=== PATIENT | male | born 1940 | race Caucasian/White ===

== ENCOUNTER 2023-12-23 11:20 | Inpatient (IN) | payer OTHER, MEDICARE ==
[2023-12-23] VITALS (27 sets, daily range): BP systolic 68–165; BP diastolic 50–112
[~2023-12-23] VITALS: Ht 172.7 cm; Wt 58.1 kg
[~2023-12-23 11:20] MED LIST: ASPI81EC PO; ATEN50 PO; CETI5 PO; CLOP75 PO; LEVSOD150 PO; LISI10 PO; LISI5 PO; OMEG1CAP30 PO; PRAV40 PO; Pravachol80 MG PO; TRAM50 PO
[2023-12-23 12:00] LABS: BASOPHILS PERCENT AUTO 1 % (0-2); Hematocrit 42.3 % (37.0-53.0); Hemoglobin 13.7 g/dL (13.5-17.5); IMMATURE GRAN ABSOLUTE AUTO 0.08 K/mm3 (0.00-0.10); IMMATURE GRAN PERCENT AUTO 1 % (0-1); Mean Corpuscular HGB Conc 32.4 g/dL (31.5-36.5); Mean Corpuscular Volume 90 fL (80-100); Mean Platelet Volume 9.5 fL (9.1-12.4); Platelet Count 455 K/mm3 (150-400); RDW Coefficient Variation 16.4 % (11.7-14.2); Red Blood Cell Count 4.72 M/mm3 (4.30-5.90); White Blood Cell Count 14.44 K/mm3 (4.00-11.30)
[2023-12-23 12:09] LABS: BASOPHILS ABSOLUTE AUTO 0.11 K/mm3 (0.00-0.23); EOSINOPHILS ABSOLUTE AUTO 2.61 K/mm3 (0.00-0.68); EOSINOPHILS PERCENT AUTO 18 % (0-6); LYMPHOCYTES ABSOLUTE AUTO 2.16 K/mm3 (0.84-5.20); LYMPHOCYTES PERCENT AUTO 15 % (21-46); MONOCYTES ABSOLUTE AUTO 1.24 K/mm3 (0.16-1.47); MONOCYTES PERCENT AUTO 9 % (4-13); NEUTROPHILS PERCENT AUTO 57 % (41-73)
[2023-12-23] MEDS ORDERED: Nitroglycerin 0.4 MG SUBL SL PRN (13:45)
[2023-12-23] MEDS ORDERED: Ondansetron HCl 2 MG / ML 2ML Vial IV ONE (13:50)
[2023-12-23] MEDS ORDERED: FentaNYL Citrate 50 MCG/ML 2 ML Injection IV ONE (13:50)
[2023-12-23 13:53] LABS: Albumin, Blood 3.1 g/dL (3.4-5.0); Albumin/Globulin Ratio 0.9 (0.8-1.8); Bilirubin, Total 0.5 mg/dL (0.1-1.0); Bun/Creatinine Ratio 32.7 (12.0-20.0); Calcium, Blood 8.6 mg/dL (8.5-10.1); Creatinine, Blood 0.86 mg/dL (0.60-1.20); Globulin, Blood 3.4 g/dL (2.2-4.0); Potassium, Blood 5.1 mmol/L (3.5-5.5); Total Protein, Blood 6.5 g/dL (6.4-8.2)
[2023-12-23] MEDS ORDERED: HYDROmorphone HCl/Pf 1MG SYR IV ONE (14:10)
[2023-12-23] MEDS ORDERED: FentaNYL Citrate 50 MCG/ML 2 ML Injection IV SCH (14:45)
[2023-12-23] MEDS ORDERED: propofoL 100 ML IV SCH (14:45)
[2023-12-23] MEDS ORDERED: Verapamil HCL 2.5 MG/ML 2ML Injection ONE (14:46)
[2023-12-23] MEDS ORDERED: Nitroglycerin 2 MG/20 ML BTL ONE (14:47)
[2023-12-23] MEDS ORDERED: NS 1,000 ML IV ONE ×2 (14:47→14:52)
[2023-12-23] MEDS ORDERED: NS 250 ML IV ONE (14:47)
[2023-12-23] MEDS ORDERED: Heparin Sodium 1000 Units/ML 10ML MDV ONE (14:47)
[2023-12-23] MEDS ORDERED: FentaNYL Citrate 50 MCG/ML 2 ML Injection ONE (14:52)
[2023-12-23] MEDS ORDERED: Midazolam HCl 1MG / ML 2ML Vial ONE (14:52)
[2023-12-23] MEDS ORDERED: Phenylephrine HCl 100 MCG/ML-NS 10MLSYR (1MG/10ML) ONE (14:53)
[2023-12-23] MEDS ORDERED: Atropine Sulfate 0.1 MG/ML 10ML SYR ONE (14:53)
[2023-12-23] MEDS ORDERED: Ticagrelor 90 MG TABLET PO ONE (14:55)
[2023-12-23] MEDS ORDERED: Aspirin 81 MG Chew PO ONE (14:55)
[2023-12-23] MEDS ORDERED: Midazolam HCL 50 MG in NS 40 ML IV PRN (15:00)
[2023-12-23] MEDS ORDERED: Aspirin 300 MG Supp PR ONE (15:05)
[2023-12-23] MEDS ORDERED: Tirofiban HCL Monohydrate 3.75 MG/15 ML Vial ONE (15:43)
[2023-12-23] MEDS ORDERED: Tirofiban HCL M-Hyd/NS 250 ML IV ONE (15:43)
[2023-12-23] MEDS ORDERED: Amiodarone HCl 50 MG / ML 3 ML Amp IV ONE (16:55)
[2023-12-23] MEDS ORDERED: EPINEPhrine HCl 0.1 MG/ML 10ML SYR XX ONE (16:55)
[2023-12-23] MEDS ORDERED: Rocuronium Bromide 10 MG/ML 5ML Injection IV ONE (16:57)
[2023-12-23] MEDS ORDERED: Etomidate 2MG / ML 10ML Vial XX ONE (16:57)
--- NOTE | 2023-12-23 17:18 | NUR ---
ASSUMED CARE PT ARRIVED TO ROOM AT 1703, HE IS INTUBATED AND SEDATED. HE IS UNRESPONSIVE TO PAINFUL STIMULI. HE DOES NOT HAVE A COUGH OR GAG REFLEX. PT HAS TR BAND IN PLACE W/ 17CC OF AIR, IT WAS PLACED AT 1651 BY CHILD NUTRITION MANAGER. ZOLL PADS IN PLACE, W/ CONTINOUS CARDIAC MONITORING. PT VENT SETTINGS ARE 16/500/5/45% FIO2. 7.5 TUBE WITH 25CM AT THE TEETH. PT HAS TEMP MENDOZA CATH PLACED DRAINING CLEAR YELLOW URINE TO GRAVITY. PT INITIAL TEMPERATURE WAS 94.0 ON ARRIVAL. PT HAS AMIODARONE DRIP AT 1MG/MIN, AGRASTAT 0.1MCG/KG/MIN.
[2023-12-23] MEDS ORDERED: [UNRECOGNIZED DRUG - OTHER] IV SCH (17:30)
[2023-12-23] MEDS ORDERED: TIROFIBAN IV SCH (17:30)
[2023-12-23] MEDS ORDERED: SODIUM CHLORIDE IV SCH (17:30)
[2023-12-23] MEDS ORDERED: Cetylpyridinium Chloride 1 EA MISC MT SCH (18:00)
[2023-12-23] MEDS ORDERED: FLU VACC TS2024-25(6MOS UP)/PF 45 MCG/0.5 ML SYRINGE IM ONE (18:00)
[2023-12-23] MEDS ORDERED: Ondansetron HCl 2 MG / ML 2ML Vial IV PRN (18:00)
[2023-12-23] MEDS ORDERED: NS 1,000 ML IV SCH (18:00)
[2023-12-23] MEDS ORDERED: FentaNYL Citrate 50 MCG/ML 2 ML Injection IV PRN ×2 (18:05→21:05)
[2023-12-23 18:07] LABS: PCO2 Arterial 42.6 mmHg (35-45); PO2 Arterial 92.4 mmHg (80-100); pH Blood Arterial 7.32 (7.35-7.45)
--- NOTE | 2023-12-23 18:36 | NUR ---
"Spiritual Care | Nurse referral Pt. is intubated and mostly not responsive. This nursing teacher is called by the charge nurse to support the family during this critical point in the Pts. care. Pts. Spouse and son are present. Facilitate a life review. Spouse displays evidence of a lower level of awareness. Prayed with Pt. and gave family support. The family verbalized gratitude for the spiritual care visit when this chaplainwas called to a Trauma in the ED."
[2023-12-23] MEDS ORDERED: Lactated Ringer's 1,000 ML IV ONE (18:44)
[2023-12-23] MEDS ORDERED: Heparin Sodium,Porcine 5,000 UNIT/0.5 ML SDV SC ONE (18:46)
--- NOTE | 2023-12-23 19:28 | NUR ---
DAY SHIFT SUMMARY PT ARRIVED FROM THE CUSTOMER SUPPORT CONSULTANT W NO NEURO RESPONSES. PT'S EYES WERE OPEN W NEGATIVE CORNEAL REFLEX. PT HAD NO GAG/COUGH REFLEX, NO RESPONSE TO NOXIOUS STIMULI, PT RIDING THE VENTILATOR ON ARRIVAL. TOWARDS THE END OF THE SHIFT THE PT HAD ALL NEURO RESPONSES RETURN HE BACAME VERY AWAKE FOLLOWING COMMANDS AND NODDING/SHAKING HIS HEAD TO ANSWER YES OR NO QUESTIONS. PT'S SBP IN THE 160'S ON ARRIVAL BUT CONTINUED TO TREND DOWN W SBP'S IN THE 70'S SO DR. TOSCANO PLACING CENTRL LINE AND LEVOPHED GTT STARTED. PT HAS REMAINED IN SR W OCCASIONAL PVC. SPO2 >92% ON VENT AC/VC 16/500/5 W 45% FIO2. PT R RADIAL SITE ASSESSED W CUSTOMER SUPPORT CONSULTANT TEAM ON ARRIVAL WHICH IT WAS C/D/I HOWEVERE, SHORT TIME LATER A LARGE HEMATOMA FORMED PROXIMAL TO THE TR BAND SO MANUAL PRESSURE APPLIED AND DR. ZEPEDA CONTACTED WHO CAME TO THE BEDSIDE AND ASSESSED THE SITE W INSTRUCTIONS FOR MANUAL PRESSURE. PT HAS AMIODARONE GTT INSUSING AT THE 1 MG RATE, AGGRESTATE GTT INFUSING, NS AT 75 AND LEVOPHED GTT AT 4 MCG/MIN. REPORT GIVEN TO JESSI RN'S.
[2023-12-23] MEDS ORDERED: Magnesium Sulf 2 GM/Water 50ML 50 ML IV ONE (19:50)
[2023-12-23] MEDS ORDERED: Ampicillin Sod/Sulbactam Sod 3 GM in NS 100 ML IV SCH (20:00)
--- NOTE | 2023-12-23 20:00 | NUR ---
ASSUMPTION OF CARE PT LYING IN BED S/P RIJ INSERTION. PT STARTING TO WAKE UP, TRACKING WITH EYES AND NODDING HEAD TO QUESTIONS. PROPFOL QUICKLY STARTED AT 10 AND TITRATED UP TO 20 THEN DOWN TO 15 BECAUSE OF BP SOFTNESS. FENTANYL USED SEDATION ADJUNCT AND PAIN MANAGEMENT 25-50 MCG Q 1HR. HR NSR 70S TO 80S WITH PVCS AND ONE 9 BEAT RUN OF VTACH AT 2017. AMIO INFUSING AT 1 MG/MIN AND LEVO AT 4, WHICH WAS QUICKLY TITRATED UP TO 10. AGGRISTAT INFUSING UNTIL ONE HOUR POST [place] ADMIN. LR INFUSING AT 75. RIGHT RADIAL ACCESS SITE HAS 17ML OF AIR WITH HEMATOMA IN FOREARM, CURRENTLY BEING COMPRESSED BY BP CUFF. PUNCTURE SITE CLEAN, DRY. RIJ PUNCTURE SITE BLEEDING MODERATE TO LARGE FRESH BLOOD. VENT SETTINGS ACVC 16 5.0 500ML 50% PRODUCING SAT >92%. LUNGS COARSE THROUGHOUT. RED SECRETIONS BEING SUCTIONED FROM ETT AND ORAPHARYNGEAL CAVITY. OG TUBE IN PLACE AND VERIFIED BY XRAY (ALONG WITH RIJ PLACEMENT). CLAMPED AND READY FOR MEDS. TEMP MENDOZA IN PLACE DRAINING YELLOW URINE WITHOUT SEDIMENT.
[2023-12-23] MEDS ORDERED: Pantoprazole Sodium 40 MG Tab PO SCH (20:30)
[2023-12-23 20:34] LABS: BASOPHILS PERCENT AUTO 0 % (0-2); EOSINOPHILS ABSOLUTE AUTO 0.11 K/mm3 (0.00-0.68); EOSINOPHILS PERCENT AUTO 0 % (0-6); Hematocrit 38.4 % (37.0-53.0); IMMATURE GRAN ABSOLUTE AUTO 0.28 K/mm3 (0.00-0.10); IMMATURE GRAN PERCENT AUTO 1 % (0-1); LYMPHOCYTES ABSOLUTE AUTO 1.41 K/mm3 (0.84-5.20); LYMPHOCYTES PERCENT AUTO 5 % (21-46); MONOCYTES ABSOLUTE AUTO 1.85 K/mm3 (0.16-1.47); MONOCYTES PERCENT AUTO 7 % (4-13); Mean Corpuscular HGB 28.5 pg (26.0-34.0); Mean Corpuscular HGB Conc 31.3 g/dL (31.5-36.5); Mean Corpuscular Volume 91 fL (80-100); Mean Platelet Volume 9.4 fL (9.1-12.4); NEUTROPHILS ABSOLUTE AUTO 24.63 K/mm3 (1.96-9.15); NEUTROPHILS PERCENT AUTO 87 % (41-73); NRBC ABSOLUTE 0.04 K/mm3 (0.00-0.02); NRBC Auto 0.1 /100 WBC (0.0-0.2); Platelet Count 580 K/mm3 (150-400); RDW Coefficient Variation 16.2 % (11.7-14.2); RDW Standard Deviation 52.3 fL (35.1-46.3); Red Blood Cell Count 4.21 M/mm3 (4.30-5.90); White Blood Cell Count 28.38 K/mm3 (4.00-11.30)
[2023-12-23 20:58] LABS: Source, Urine Foley catheter
[2023-12-23] MEDS ORDERED: Pantoprazole Sodium 40 MG Injection IV SCH (21:00)
[2023-12-23 21:09] LABS: Appearance, Urine Clear (Clear); Bilirubin, Urine Neg (Neg); Blood, Urine 5+ (Neg); Color, Urine Yellow (P-Yellow); Glucose Qualitative, Urine 2+ (Neg); Ketones, Urine Neg (Neg); Leukocyte Esterase, Urine 1+ (Neg); Nitrite, Urine Neg (Neg); Protein, Urine 2+ (Neg); Urobilinogen, Urine NORM (Normal)
[2023-12-23 21:18] LABS: Albumin, Blood 2.9 g/dL (3.4-5.0); Albumin/Globulin Ratio 1.1 (0.8-1.8); Bilirubin, Total 0.5 mg/dL (0.1-1.0); Calcium, Blood 8.2 mg/dL (8.5-10.1); Creatinine, Blood 0.89 mg/dL (0.60-1.20); Globulin, Blood 2.6 g/dL (2.2-4.0); Phosphorus, Blood 4.1 mg/dL (2.5-4.9); Potassium, Blood 4.4 mmol/L (3.5-5.5); Total Protein, Blood 5.5 g/dL (6.4-8.2)
[2023-12-23 21:31] LABS: Bacteria Mod /hpf; Squamous Epithelial Cells Few /hpf (Few); White Blood Cells, Urine 0-2 /hpf (0-5)
[2023-12-23] MEDS ORDERED: Albuterol 2.5 MG/3 ML VIAL INH PRN (22:10)
[2023-12-23] MEDS ORDERED: Ipratropium/Albuterol SulF 2.5-0.5MG/3 ML Amp INH SCH (22:10)
[2023-12-24] VITALS (94 sets, daily range): BP systolic 73–135; BP diastolic 41–87
[2023-12-24] MEDS ORDERED: Hydrogen Peroxide 1.5 % Solution MT SCH
[2023-12-24 03:41] LABS: Acinetobacter baumannii DNA Not Detected copy/mL (NOT DETECT); Enterobacter cloacae DNA Not Detected copy/mL (NOT DETECT); Escherichia coli DNA Detected Bin 10^6 copy/mL (NOT DETECT); Haemophilus influenzae DNA Not Detected copy/mL (NOT DETECT); Klebsiella aerogenes DNA Not Detected copy/mL (NOT DETECT); Klebsiella oxytoca DNA Not Detected copy/mL (NOT DETECT); Klebsiella pneumoniae DNA Not Detected copy/mL (NOT DETECT); Moraxella catarrhalis DNA Not Detected copy/mL (NOT DETECT); Proteus sp DNA Not Detected copy/mL (NOT DETECT); Pseudomonas aeruginosa DNA Detected Bin >=10^7 copy/mL (NOT DETECT); Serratia marcescens DNA Not Detected copy/mL (NOT DETECT); Staphylococcus aureus DNA Detected Bin 10^5 copy/mL (NOT DETECT); Streptococcus agalactiae DNA Not Detected copy/mL (NOT DETECT); Streptococcus pneumoniae DNA Not Detected copy/mL (NOT DETECT); Streptococcus pyogenes DNA Not Detected copy/mL (NOT DETECT)
[2023-12-24 03:42] LABS: Adenovirus DNA Not Detected (NOT DETECT); CTX-M Resistance Gene Not Detected; Chlamydia pneumonia Not Detected (NOT DETECT); Human Coronavirus RNA Not Detected (NOT DETECT); Human Metapneumovirus RNA Not Detected (NOT DETECT); IMP Resistance Gene Not Detected; Influenza virus A RNA Not Detected (NOT DETECT); Influenza virus B RNA Not Detected (NOT DETECT); KPC Resistance Gene Not Detected; Legionella pneumophila Not Detected (NOT DETECT); Mycoplasma pneumoniae Not Detected (NOT DETECT); NDM Resistance Gene Not Detected; OXA-48-like Resistance Gene Not Detected; Parainfluenza virus RNA Not Detected (NOT DETECT); Respiratory syncytial Vir RNA Not Detected (NOT DETECT); Rhinovirus+Enterovirus RNA Not Detected (NOT DETECT); VIM Resistance Gene Not Detected; mecA/C and MREJ Resist Gene Not Detected
[2023-12-24 04:34] LABS: BASOPHILS ABSOLUTE AUTO 0.05 K/mm3 (0.00-0.23); BASOPHILS PERCENT AUTO 0 % (0-2); EOSINOPHILS ABSOLUTE AUTO 0.04 K/mm3 (0.00-0.68); EOSINOPHILS PERCENT AUTO 0 % (0-6); Hematocrit 33.4 % (37.0-53.0); Hemoglobin 10.7 g/dL (13.5-17.5); IMMATURE GRAN ABSOLUTE AUTO 0.17 K/mm3 (0.00-0.10); IMMATURE GRAN PERCENT AUTO 1 % (0-1); LYMPHOCYTES ABSOLUTE AUTO 1.72 K/mm3 (0.84-5.20); LYMPHOCYTES PERCENT AUTO 8 % (21-46); MONOCYTES ABSOLUTE AUTO 2.25 K/mm3 (0.16-1.47); MONOCYTES PERCENT AUTO 10 % (4-13); Mean Corpuscular HGB 29.1 pg (26.0-34.0); Mean Corpuscular Volume 91 fL (80-100); Mean Platelet Volume 9.7 fL (9.1-12.4); NEUTROPHILS ABSOLUTE AUTO 18.14 K/mm3 (1.96-9.15); NEUTROPHILS PERCENT AUTO 81 % (41-73); NRBC ABSOLUTE 0.11 K/mm3 (0.00-0.02); NRBC Auto 0.5 /100 WBC (0.0-0.2); Platelet Count 552 K/mm3 (150-400); RDW Coefficient Variation 16.7 % (11.7-14.2); RDW Standard Deviation 54.4 fL (35.1-46.3); Red Blood Cell Count 3.68 M/mm3 (4.30-5.90); White Blood Cell Count 22.37 K/mm3 (4.00-11.30)
[2023-12-24 04:51] LABS: International Normalized Ratio 1.07; Prothrombin Time Results 11.4 Sec (9.7-11.5)
[2023-12-24 05:19] LABS: Albumin, Blood 2.6 g/dL (3.4-5.0); Bilirubin, Total 0.4 mg/dL (0.1-1.0); Bun/Creatinine Ratio 26.6 (12.0-20.0); Calcium, Blood 7.7 mg/dL (8.5-10.1); Creatinine, Blood 1.09 mg/dL (0.60-1.20); Globulin, Blood 2.5 g/dL (2.2-4.0); Magnesium, Blood 2.7 mg/dL (1.6-2.4); Potassium, Blood 4.3 mmol/L (3.5-5.5); Total Protein, Blood 5.1 g/dL (6.4-8.2)
[2023-12-24] MEDS ORDERED: Levothyroxine Sodium 0.175 MG TAB PO SCH (06:00)
--- NOTE | 2023-12-24 06:40 | NUR ---
UPDATE RIGHT TR BAND IN PLACE AT START OF SHIFT WITH 17ML AIR. SITE CLEAN AND DRY BUT RESOLVING HEMATOMA PROXIMAL WITH BLOOD PRESSURE CUFF IN PLACE FOR CONTROL. THE FOLLOWING IS THE TIME OF AIR REMOVAL AND THE AMOUNT REMAINING 2337 (12/23/23)- 15 0013 - 13 0053 - 11 0120 - 9 0326 - 7 0355 - 5 0415 - 3 0459 - 0 TR BAND REMOVED AT 0640. SITE IS CLEAN AND DRY AND PROXIMAL HEMATOMA IS MOSTLY RESOLVED, INDURATION DIFFICULT TO APPRECIATE. TEGDERM IN PLACE.
--- NOTE | 2023-12-24 07:00 | NUR ---
ASSUMED CARE PT IS INTUBATED AND SEDATED. HOB IS AT 30. HE IS RESTING IWTH HIS EYES CLOSED AND DOES NOT RESPOND TO VERBAL STIMULI DURING BSSR. HIS VENT SETTINGS ARE 16/500/5/45% FIO2. HIS ETT TUBE IS 7.5 W/ 25CM AT TEETH. SPO2 >96 AND PT IS TOLERATING VENT W/O COUGHING. PT IS ON AMIODARONE DRIP AT 0.5MG/MIN, NOREPINEPHERINE AT 10MCG/MIN, AND PROPOFOL 25MCG/KG/MIN. HE HAS NS @ 75ML/HR. PT HAS MENDOZA CATH PATENT AND DRAINING DARK YELLOW URINE TO GRAVITY. OG TUBE IS CLAMPED.
--- NOTE | 2023-12-24 07:18 | NUR ---
SHIFT SUMMARY PT LYING IN BED SEDATED AND VENTILATED/INTUBATED. PT IS AROUSABLE WHEN SEDATION LOWERED. PROPFOL INFUSING AT 25. FENTANYL USED SEDATION ADJUNCT AND PAIN MANAGEMENT 50 MCG Q 1HR. HR NSR 70S TO 80S WITH PVCS AND ONE 9 BEAT RUN OF VTACH AT 2017. AMIO INFUSING AT 0.5 MG/MIN AND LEVO AT 10, NS INFUSING AT 75. RIGHT RADIAL ACCESS PUNCTURE SITE CLEAN, DRY WITH TEGADERM FRAME IN PLACE. RIJ PUNCTURE SITE BLEEDING MODERATE TO LARGE FRESH BLOOD. DRESSING CHANGED DURING SHIFT. VENT SETTINGS ACVC 16 5.0 500ML 40% PRODUCING SAT >92% PT SATS BETTER LEANING TO LEFT SIDE. RED SECRETIONS BEING SUCTIONED FROM ETT. OG TUBE IN PLACE AND VERIFIED BY XRAY (ALONG WITH RIJ PLACEMENT). CLAMPED AND READY FOR MEDS. TEMP MENDOZA IN PLACE DRAINING YELLOW URINE WITHOUT SEDIMENT.
[2023-12-24] MEDS ORDERED: Piperacillin/Tazobactam Sod 3.375 GM in NS 100 ML IV SCH (08:39)
[2023-12-24] MEDS ORDERED: Aspirin 81 MG Chew PO SCH (09:00)
[2023-12-24] MEDS ORDERED: Enoxaparin 40 MG/0.4 ML SYR SC SCH (09:00)
--- NOTE | 2023-12-24 10:27 | NUR ---
COCCYX/SACRUM ASSESSMENT PRIOR DOCUMENTATION INDICATED STAGE 1 PRESSURE INJURY TO COCCYX. UPON ASSESSMENT 12/24/23 NO REDDNESS OR STAGEABLE INJURY NOTED TO COCCYX. RAMAKRISHNA PROMINENCE NOTED WITH MEPILEX PLACED FOR PROTECTION. DR TOSCANO UPDATED TO ASSESSMENT FINDINGS.
--- NOTE | 2023-12-24 10:37 | NUR ---
Spiritual Care Check in. Pt. is intubated and is not responsive. Spouse and son are at bedside and welcome my visit. Spouse displays evidence of not being fully aware of the Pts. condition. Will remain available to the Pt. and family. Family verbalized gratitude for the spiritual care check in.
[2023-12-24] MEDS ORDERED: Ticagrelor 90 MG TABLET PT SCH (10:45)
[2023-12-24] MEDS ORDERED: Atorvastatin 40 MG Tab PT SCH (10:45)
[2023-12-24] MEDS ORDERED: Magnesium Hydroxide Conc 10 ML UDC PT PRN ×2 (13:35→13:40)
[2023-12-24] MEDS ORDERED: Docusate Sodium 100 MG UDC PT PRN ×2 (13:35→13:40)
[2023-12-24] MEDS ORDERED: Bisacodyl 10 MG Supp PR PRN ×2 (13:35→13:40)
--- NOTE | 2023-12-24 15:02 | NUR ---
SBT STARTED SBT AT 1436, STOPPED PROPOFOL 40MCG/KG/MIN PER DR. TOSCANO. VENT SETTING WAS CHANGED SPONTANOUS 07/19. PT BECAME MORE RESTLESS, HIS LEGS STARTED SHAKING. HE WAS UNABLE TO RESPOND TO VERBAL STIMULI OR FOLLOW COMMANDS. PT WORK OF BREATHING INCREASED. PT SWITCHED BACK TO AC/VC 1450 AND RESTARTED PROPOFOL AT 20MCG/KG/MIN AND GAVE FENTANYL PER EMAR.
[2023-12-24] MEDS ORDERED: LORazepam 2 MG/ML 1ML Injection IV PRN (15:05)
[2023-12-24] MEDS ORDERED: dexmedeTOMIDine 100 ML IV SCH (15:05)
--- NOTE | 2023-12-24 17:56 | NUR ---
SHIFT SUMMARY PT IS INTUBATED AND SEDATED. HIS VENT SETTINGS ARE 16/520/5/40%. ETT IS 7.5 AT 25CM. PT HAD SBT TODAY PER DR. TOSCANO. HE WAS RESTLESS, WORK OF BREATHING INCREASED AND PT WAS UNABLE TO RESPOND TO OR FOLLOW COMMANDS. PT RASS IS -2 ON SEDATION, DECREASING PROPOFOL CAUSES PT TO BECOME ASYNCHRONOUS W/ VENT. PT HAS CONTINUOUS CARDIAC MONITORING, HR HAS BEEN 80-90S W/ SYSTOLIC BP >80 AND MAP >65. HE HAS AMIODARONE DRIP AT 0.5MG/HR, NOREPINEPHERINE AT 12MCG/MIN, PRECEDEX 0.4MCG/KG/HR, AND PROPOFOL AT 40MCG/KG/MIN. PT STARTED TF TODAY, VITAL HP AT 25ML/HR WITH GOAL OF 45ML/HR. HE HAS TOLERATED WELL. MENDOZA CATH IS PATENT AND DRAINING TO GRAVITY, DARK YELLOW URINE. TMAX WAS 99.5. PT HAS REMAINED AFEBRILE. CENRAL LINE DRESSING WAS CHANGED AND OOZING HAS STOPPED. DRESSING IS C/D/I. PATIENT FAMILY AT BESIDE, REPORT GIVEN TO LOGAN WILKINSON RN.
[2023-12-25] VITALS (83 sets, daily range): BP systolic 87–146; BP diastolic 47–70
[2023-12-25 06:30] LABS: Bun/Creatinine Ratio 30.6 (12.0-20.0); Calcium, Blood 7.7 mg/dL (8.5-10.1); Creatinine, Blood 1.24 mg/dL (0.60-1.20); Magnesium, Blood 2.6 mg/dL (1.6-2.4); Phosphorus, Blood 4.1 mg/dL (2.5-4.9); Potassium, Blood 3.5 mmol/L (3.5-5.5)
--- NOTE | 2023-12-25 06:38 | NUR ---
SHIFT SUMMERY PT REMAINS INTUBATED AND SEDATED W/ETT INTACT AND PATENT TO VENT. LEVO INFUSING TO MAINTAIN MAP > 65. AMIO GTT INFUSING WELL. PROPOFOL FOR SEDATION W/PRECEDEX-SEE FLOWSHEET FOR RATES. PT HAS TF INFUSING VIA OG TUBE. MENDOZA CATH INTACT PATENT AND DRAINING TO GRAVITY. PT HAS CHANGED FROM SR TO AFIB/FLUTTER W/CONTROLLED RATE. AFEBRILE. OXYGEN SAT HAVE BEEN GREATER THAN 95%. NO BM.
--- NOTE | 2023-12-25 07:01 | NUR ---
ASSUMED CARE PT HAS NOT HAD ANY ACUTE CHANGES OVERNIGHT PER NOC CHADWICK GARCIA. PT RESTING WITH EYES CLOSED, INTUBATED AND SEDATED . HE DOES NOT RESPOND TO VERBAL STIMULI DURING BSSR. AMIODARONE AT 0.5MG/MIN, NOREPINEPHERINE AT 10MCG/MIN, PROPOFOL @ 40MCG/KG/MIN AND PRECEDEX AT 0.4MCG/KG/HR. RIGHT IJ DRESSING IS C/D/I WITH NO FURTHER OOZING OR BLEEDING OVERNIGHT. TF RUNNING @ 25ML/HR WITH GOAL 45ML/HR. VENT SETTINGS ARE 16/520/5/40%. HIS SPO2 REMAINS >96%. PT HAS CONTINUOUS CARDIC MONITORING WITH A-FLUTTER RATE IN 10S. MAP >65. SYSTOLIC BP >110. MENDOZA CATH IS PATENT AND DRAINING DARK YELLOW URINE TO GRAVITY.
[2023-12-25 08:30] LABS: BASOPHILS ABSOLUTE AUTO 0.06 K/mm3 (0.00-0.23); BASOPHILS PERCENT AUTO 0 % (0-2); EOSINOPHILS ABSOLUTE AUTO 0.36 K/mm3 (0.00-0.68); EOSINOPHILS PERCENT AUTO 2 % (0-6); Hematocrit 28.3 % (37.0-53.0); Hemoglobin 9.3 g/dL (13.5-17.5); IMMATURE GRAN ABSOLUTE AUTO 0.13 K/mm3 (0.00-0.10); IMMATURE GRAN PERCENT AUTO 1 % (0-1); LYMPHOCYTES ABSOLUTE AUTO 1.04 K/mm3 (0.84-5.20); LYMPHOCYTES PERCENT AUTO 5 % (21-46); MONOCYTES ABSOLUTE AUTO 1.11 K/mm3 (0.16-1.47); MONOCYTES PERCENT AUTO 5 % (4-13); Mean Corpuscular HGB 28.8 pg (26.0-34.0); Mean Corpuscular HGB Conc 32.9 g/dL (31.5-36.5); Mean Corpuscular Volume 88 fL (80-100); Mean Platelet Volume 10.2 fL (9.1-12.4); NEUTROPHILS ABSOLUTE AUTO 20.49 K/mm3 (1.96-9.15); NEUTROPHILS PERCENT AUTO 88 % (41-73); NRBC ABSOLUTE 0.02 K/mm3 (0.00-0.02); NRBC Auto 0.1 /100 WBC (0.0-0.2); Platelet Count 508 K/mm3 (150-400); RDW Standard Deviation 52.8 fL (35.1-46.3); Red Blood Cell Count 3.23 M/mm3 (4.30-5.90); White Blood Cell Count 23.19 K/mm3 (4.00-11.30)
[2023-12-25] MEDS ORDERED: Naloxone HCl 0.4MG / ML 1ML Vial IV ONE (08:45)
--- NOTE | 2023-12-25 11:10 | NUR ---
Spiritual Care Visit. Pt. is intubated and not responsive. No family are present. This hospice fellow has been supporting Pt. and family since his admission. Prayed for Pt. Will remain available to Pt. and family.
[2023-12-25] MEDS ORDERED: Potassium Chl 20MEQ/Water100ML 100 ML IV STA (11:14)
--- NOTE | 2023-12-25 17:29 | NUR ---
SHIFT SUMMARY PT HAS BEEN SEDATED AND INTUBATED. HE IS ON 6MCG/MIN LEVOPHED, 20MCG/KG/MIN PROPOFOL. HE HAS NOT BEEN RESPONSIVE TO VERBAL STIMULI. HE WITHDRAWS FROM NOXIOUS STIMULI. PT VENT SETTINGS ARE AC/VC 16/520/5/40%. HIS ETT IS 7.5 AT 25CM AT TEETH. HE HAD SBT TODAY WITH SEDATION VACATION. PT ON SPONTANIOUS FOR 5 HOURS, W/O INCREASED WOB. HE DID NOT RESPOND TO VERBAL COMMANDS OR STIMULI W PROPOFOL AND PRECEDEX STOPPED. DR. 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 PROPOFOL WAS RESTARTED AND SBT ENDED AT 1650. PT ON CONTINIOUS CARDIAC MONITORING, PT BETWEEN AFIB AND AFLUTTER T/O SHIFT. HR IN 70-90S AND SYSTOLIC BP >90, MAP >65. PT HAS TF VITAL HP AT GOAL 45ML/HR. HE HAS NOT HAD BM THIS SHIFT. MENDOZA CATH IN PLACE AND DRAINING TO GRAVITY, DARK YELLOW URINE. PT TMAXX HAS BEEN 100.5. FAMILY HAS BEEN AT BEDSIDE TODAY AND WAS UPDATED. BED IN LOWEST POSITION, REPORT GIVEN TO ONCOMING NOC NURSE.
[2023-12-26] VITALS (62 sets, daily range): BP systolic 90–169; BP diastolic 48–76
--- NOTE | 2023-12-26 05:53 | NUR ---
SHIFT SUMMERY PT REMAINS INTUBATED W/ETT INTACT AND PATENT TO THE VENT. PT DID BECOME ASYNCHRONOUS W/VENTILATION OVERNIGHT AND SEDATION WAS INCREASED. PT HAS TOLERATED VENT WELL SINCE THAT TIME, SEE FLOWSHEET FOR RATES. LEVOPHED INFUSING FOR MAP >65-SEE FLOWSHEET. MENDOZA CATH INTACT PATENT AND DRAINING. PT HAS HAD NO ACUTE CHANGES OVERNIGHT. TF INFUSING AT GOAL.
[2023-12-26] MEDS ORDERED: Potassium Chloride 20 MEQ/15 ML UDC PO ONE (06:10)
[2023-12-26 07:58] LABS: BASOPHILS ABSOLUTE AUTO 0.03 K/mm3 (0.00-0.23); BASOPHILS PERCENT AUTO 0 % (0-2); Bun/Creatinine Ratio 37.9 (12.0-20.0); Calcium, Blood 8.1 mg/dL (8.5-10.1); Creatinine, Blood 1.03 mg/dL (0.60-1.20); EOSINOPHILS ABSOLUTE AUTO 0.25 K/mm3 (0.00-0.68); EOSINOPHILS PERCENT AUTO 1 % (0-6); Hematocrit 26.1 % (37.0-53.0); Hemoglobin 8.6 g/dL (13.5-17.5); IMMATURE GRAN ABSOLUTE AUTO 0.17 K/mm3 (0.00-0.10); IMMATURE GRAN PERCENT AUTO 1 % (0-1); LYMPHOCYTES ABSOLUTE AUTO 1.37 K/mm3 (0.84-5.20); LYMPHOCYTES PERCENT AUTO 7 % (21-46); MONOCYTES PERCENT AUTO 5 % (4-13); Magnesium, Blood 2.7 mg/dL (1.6-2.4); Mean Corpuscular HGB 28.6 pg (26.0-34.0); Mean Corpuscular Volume 87 fL (80-100); NEUTROPHILS ABSOLUTE AUTO 16.62 K/mm3 (1.96-9.15); NEUTROPHILS PERCENT AUTO 86 % (41-73); NRBC ABSOLUTE 0.02 K/mm3 (0.00-0.02); NRBC Auto 0.1 /100 WBC (0.0-0.2); Phosphorus, Blood 2.9 mg/dL (2.5-4.9); Platelet Count 548 K/mm3 (150-400); Potassium, Blood 3.5 mmol/L (3.5-5.5); RDW Coefficient Variation 17.3 % (11.7-14.2); RDW Standard Deviation 53.5 fL (35.1-46.3); Red Blood Cell Count 3.01 M/mm3 (4.30-5.90); White Blood Cell Count 19.34 K/mm3 (4.00-11.30)
--- NOTE | 2023-12-26 08:48 | NUR ---
ASSUMED CARE BEDSIDE REPORT FROM RADHA GENAO AT 0700. PT INTUBATED AND SEDATED. VENT SETTINGS AC/PC 16/1.25/5/35%. LUNGS CLEAR. SCANT PINK/YELLOW SECRETIONS FROM ETT. PROPOFOL AND PRECEDEX GTT INFUSING FOR SEDATION, RASS -4, TITRATING DOWN. NO MOVEMENT NOTED TO BUE, WITHDRAWS BLE TO PAIN. GRIMACES TO TRAPEEZE PINCH. +COUGH/GAG/SWALLOW. EMBER, 3MM. AFLUTTER, RATE 80'S. LEVO GTT FOR MAP>65. PT P/W/D. ABD FLAT, SOFT, NON TENDER, BT X 4. TUBE FEEDS AT GOAL VIA OGT. CVC TO RIJ, DRESSING C/D/I. MENDOZA PATENT, DRAINING CLEAR YELLOW URINE TO GRAVITY. WILL CONTINUE PLAN OF CARE.
[2023-12-26] MEDS ORDERED: Lactobacil 2-S.Thermo-Bifido 1 1 Cap PT SCH (09:00)
--- NOTE | 2023-12-26 12:33 | NUR ---
Spiritual Care Visit. Pt. is intubated and not responsive. This business advisor has been with the Pt. and family since his admission to the hospital. Offered Prayer over the Pt. Will remain availabel to the Pt. and family.
[2023-12-26] MEDS ORDERED: MethylPREDNISolone Sod Succ 125 MG Vial IV SCH (14:00)
[2023-12-26] MEDS ORDERED: NS 250 ML IV PRN (15:05)
[2023-12-26] MEDS ORDERED: Piperacillin/Tazobactam Sod 4.5 GM in NS 100 ML IV SCH (16:00)
--- NOTE | 2023-12-26 17:43 | NUR ---
SHIFT SUMMARY PT REMAINS INTUBATED, SEDATION VACATION PERFORMED THIS SHIFT. PT TOLERATED WELL THIS THIS EVENING DURING FAMILY VISIT, HR AND RR INCREASED, RASS +2, DID NOT FOLLOW COMMANDS, INCREASED MOVEMENT TO BLE, NO MOVEMENT NOTED TO BUE. RESTARTED PROPOFOL AT 15 MCG/KG/MIN, RASS -4 AT THIS TIME. WITHDRAWS BLE AND GRIMACES TO PAIN. +COUGH/GAG/SWALLOW. EMBER. OPENS EYES SPONT. DOES NOT TRACK. FENTANYL PRN. LUNGS CLEAR, ON SPONT 5/5/35%, TV 600'SML, RR 16-22. SMALL AMOUNT OF PINK/YELLOW SECRETIONS FROM ETT. AFLUTTER ON MONITOR, RATE 80-110'S. LEVO TITRATED OFF THIS SHIFT, MAP>65. POWERGLIDE PLACED TO LUE, CVC REMAINS TO RIJ. TUBE FEEDS AT GOAL. MENDOZA PATENT, DRAINED 1200 ML CLEAR YELLOW URINE TO GRAVITY. WILL CONTINUE PLAN OF CARE UNTIL REPORT TO ONCOMING NURSE.
[2023-12-26] MEDS ORDERED: Lansoprazole 15 MG TAB.RAP.DR PT SCH (21:00)
--- NOTE | 2023-12-26 21:51 | NUR ---
ASSUMPTION OF CARE ASSUMED CARE OF PATIENT AT 1900, BEDSIDE SHIFT REPORT RECEIVED FROM CHLOE RN. PT RESTING IN BED, INTUBATED AND SEDATED. PROPOFOL INFUSING AT 15MCG/KG/MIN. PT MOVES BLE AND LEFT ARM OCCASIONALL SPONTANEOUSLY. PT WITHDRAWS BLE TO NOXIOUS STIMULI, DOES NOT WITHDRAW UPPER EXTRMEITIES. PT GRIMACES WITH TRAPEZIUS SQUEEZE AND WITH ORAL CARE. HR 90-100'S AFLUTTER, MAP >65. VENT SETTINGS SPONTANEOUS 5/5/35%, FI02 INCREASED TO 40% ON ASSESSMENT, OXYGEN SATURATION >90%. ABDOMEN SOFT, BOWEL TONES ACTIVE. OG TUBE IN PLACE WITH VHP INFUSING AT GOAL RATE OF 45MLS/HR WITH A 30ML Q4H WATER FLUSH. TEMP MENDOZA IN PLACE PATENT DRAINING YELLOW URINE TO GRAVITY. POWERGLIDE IN PLACE TO CHARBEL SL. CENTRAL LINE IN PLACE TO RIJ INFUSING PROPOFOL WELL NS TKO. BED IN LOWEST POSITION, CARE CONTINUES.
[2023-12-27] VITALS (45 sets, daily range): BP systolic 114–191; BP diastolic 51–84
--- NOTE | 2023-12-27 04:26 | NUR ---
PT UPDATE WHILE PERFORMING BED BATH, PT WAS TURNED ON HIS RIGHT SIDE. WHILE TURNED ON HIS RIGHT SIDE PT BEGAN TO COUGH AND APPEARED TO VOMIT. PINK TINGED VOMIT VISIBLE ON GREEN SHEET. LARGE AMOUNT OF THICK PINK/RED SPUTUM IN VENTILATOR CIRCUIT TUBING. PT SUCTIONED ORALLY WELL THROUGH THE ETT TUBE. RT TO BEDSIDE, PT REMAINED ON RIGHT SIDE UNTIL CIRCUIT CHANGED. RESIDUAL CHECKED, 500MLS OF CHAPPELL FORMULA OUTPUT NOTED. CALL PLACED TO REGUARDING THE ABOVE NOTE. PER DR. UMAÑA, THIS RN TO DISCARD 250MLS OF RESIDUAL, RE-INSTILL 250MLS, HOLD TF, AND RECHECK RESIDUALS IN 1HR. CARE CONTINUES.
[2023-12-27 05:08] LABS: BASOPHILS PERCENT AUTO 0 % (0-2); EOSINOPHILS PERCENT AUTO 0 % (0-6); Hematocrit 25.4 % (37.0-53.0); Hemoglobin 8.6 g/dL (13.5-17.5); IMMATURE GRAN ABSOLUTE AUTO 0.15 K/mm3 (0.00-0.10); IMMATURE GRAN PERCENT AUTO 1 % (0-1); LYMPHOCYTES ABSOLUTE AUTO 0.24 K/mm3 (0.84-5.20); LYMPHOCYTES PERCENT AUTO 1 % (21-46); MONOCYTES ABSOLUTE AUTO 0.55 K/mm3 (0.16-1.47); MONOCYTES PERCENT AUTO 3 % (4-13); Mean Corpuscular HGB 29.2 pg (26.0-34.0); Mean Corpuscular HGB Conc 33.9 g/dL (31.5-36.5); Mean Corpuscular Volume 86 fL (80-100); Mean Platelet Volume 9.8 fL (9.1-12.4); NEUTROPHILS ABSOLUTE AUTO 15.81 K/mm3 (1.96-9.15); NEUTROPHILS PERCENT AUTO 94 % (41-73); NRBC ABSOLUTE 0.03 K/mm3 (0.00-0.02); NRBC Auto 0.2 /100 WBC (0.0-0.2); Platelet Count 550 K/mm3 (150-400); RDW Coefficient Variation 17.4 % (11.7-14.2); RDW Standard Deviation 53.4 fL (35.1-46.3); Red Blood Cell Count 2.95 M/mm3 (4.30-5.90); White Blood Cell Count 16.75 K/mm3 (4.00-11.30)
[2023-12-27 05:26] LABS: Calcium, Blood 7.9 mg/dL (8.5-10.1); Creatinine, Blood 0.9 mg/dL (0.60-1.20); Magnesium, Blood 2.9 mg/dL (1.6-2.4); Phosphorus, Blood 3.1 mg/dL (2.5-4.9); Potassium, Blood 4.2 mmol/L (3.5-5.5)
--- NOTE | 2023-12-27 06:24 | NUR ---
SHIFT SUMMARY PT CONTINUES TO REST IN BED, INTUBATED AND SEDATED. PROPOFOL INFUSING AT 20MCG/KG/MIN. PT MOVES BLE SPONTANEOUSLY, WITHDRAWS BLE TO NOXIOUS STIMULI. PT DOES NOT WITHDRAW UPPER EXTREMITIES TO NOXIOUS STIMULI. PT GRIMACES WITH TRAPEZIUS SQUEEZE AND ORAL CARE. PT DOES NOT FOLLOW DIRECTION, DOES NOT MAKE EYE CONTACT OR TRACK. HR 80-100'S AFLUTTER/SIT, MAP >65. VENT SETTINGS SPONTANEOUS 5/5 40%, OXYGEN SATURATION >90%. ABDOMEN SOFT, BOWEL TONES ACTIVE. TF PLACED ON HOLD PER CONVERSATION WITH DR. UMAÑA, SEE PREVIOUS NURSES NOTE. OG TUBE IN PLACE CLAMPED. TEMP MENDOZA IN PLACE PATENT DRAINING YELLOW URINE TO GRAVITY, POWERGLIDE IN PLACE TO CHARBEL SL. CENTRAL LINE IN PLACE TO RIJ INFUSING PROPOFOL WELL NS TKO. BED IN LOWEST POSITION, CARE CONTINUES.
--- NOTE | 2023-12-27 08:00 | NUR ---
ASSUMED CARE BEDSIDE REPORT FROM JUANA GENAO AT 0700. PT INTUBATED AND SEDATED. VENT SETTINGS SPONT 5/5/40%, TV 600'S ML, RR 16-22. LUNGS CLEAR. SMALL AMOUNT OF PINK SECRETIONS FROM ETT. PROPOFOL GTT FOR SEDATION, RASS -4, TITRATING DOWN. FENTANYL PRN FOR PAIN. +COUGH/GAG/SWALLOW, WITHDRAWS BLE TO PAIN, NO RESPONSE TO BUE. GRIMACES c TRAPEZIUS PINCH. DOES NOT FOLLOW COMMANDS. ST, RATE 100'S. BP STABLE. ABD ROUND, SOFT, NON TENDER, BT X 4. TUBE FEEDS RESTARTED. BOWEL CARE GIVEN. MENDOZA PATENT, DRAINING CLEAR YELLOW URINE TO GRAVITY. CVC TO RIJ, POWERGLIDE TO LUE. DRESSINGS C/D/I. WILL CONTINUE PLAN OF CARE.
--- NOTE | 2023-12-27 17:43 | NUR ---
SHIFT SUMMARY PT REMAINED OF SEDATION MOST OF SHIFT, APPROX 1 HOUR AGO, BECAME TACHYCARDIC, TACHYPNEIC, COUGHING AND FIGHTING VENT, RASS +2. OPENING EYES MORE FREQUENTLY, NOT TRACKING, NOT FOLLOWING DIRECTIONS. MEDICATED c FENTANYL s RELIEF, RESTARTED PROPOFOL. RASS -4 AT THIS TIME. SR, RATE 90'S. BP STABLE. TUBE FEEDS AT GOAL, TOLERATED WELL, TWO BMS THIS SHIFT. MENDOZA PATENT, DRAINED 750 ML CLEAR YELLOW URINE TO GRAVITY. FAMILY UPDATED AT BEDSIDE. WILL CONTINUE PLAN OF CARE UNTIL REPORT TO ONCOMING NURSE.
--- NOTE | 2023-12-27 20:00 | NUR ---
ASSUMED CARE OF PT AT 1900. REPORT RECEIVED AT BEDSIDE. PT PRESENTS IN BED. INTUBATED: SPONTANEOUS WITH PRESSURE SUPPORT AT 5.0, PEEP 5.0 FIO2 35%. PT MAINTAINS SATURATIONS > 90 PERCENT WITH THIS. PT HAS SOME MOVEMENTS OF UPPER EXTREMITIES THAT IS NON-PURPOSEFUL. SOME MOVEMENTS ALSO OF LOWER EXTREMITIES WITHOUT PURPOSE WELL. WILL REVIEW CHART AND PLAN OF CARE FOR THIS PT.
[2023-12-28] VITALS (53 sets, daily range): BP systolic 134–188; BP diastolic 53–153
[2023-12-28 04:29] LABS: BASOPHILS ABSOLUTE AUTO 0.01 K/mm3 (0.00-0.23); BASOPHILS PERCENT AUTO 0 % (0-2); EOSINOPHILS ABSOLUTE AUTO 0.03 K/mm3 (0.00-0.68); EOSINOPHILS PERCENT AUTO 0 % (0-6); Hemoglobin 8.4 g/dL (13.5-17.5); IMMATURE GRAN PERCENT AUTO 1 % (0-1); LYMPHOCYTES ABSOLUTE AUTO 0.83 K/mm3 (0.84-5.20); LYMPHOCYTES PERCENT AUTO 6 % (21-46); MONOCYTES ABSOLUTE AUTO 1.15 K/mm3 (0.16-1.47); MONOCYTES PERCENT AUTO 8 % (4-13); Mean Corpuscular HGB 28.4 pg (26.0-34.0); Mean Corpuscular HGB Conc 32.3 g/dL (31.5-36.5); Mean Corpuscular Volume 88 fL (80-100); Mean Platelet Volume 9.5 fL (9.1-12.4); NEUTROPHILS ABSOLUTE AUTO 12.31 K/mm3 (1.96-9.15); NEUTROPHILS PERCENT AUTO 85 % (41-73); NRBC ABSOLUTE 0.03 K/mm3 (0.00-0.02); NRBC Auto 0.2 /100 WBC (0.0-0.2); Platelet Count 653 K/mm3 (150-400); RDW Coefficient Variation 17.6 % (11.7-14.2); RDW Standard Deviation 55.2 fL (35.1-46.3); Red Blood Cell Count 2.96 M/mm3 (4.30-5.90); White Blood Cell Count 14.43 K/mm3 (4.00-11.30)
[2023-12-28 05:04] LABS: Bun/Creatinine Ratio 61.3 (12.0-20.0); Calcium, Blood 8.2 mg/dL (8.5-10.1); Creatinine, Blood 0.82 mg/dL (0.60-1.20); Magnesium, Blood 2.7 mg/dL (1.6-2.4); Phosphorus, Blood 1.9 mg/dL (2.5-4.9); Potassium, Blood 3.5 mmol/L (3.5-5.5)
--- NOTE | 2023-12-28 06:00 | NUR ---
HAVE TITRATED PROPOFOL UP TO 30 MCG'S/KG/MIN SECONDARY TO PT BECOMING MORE FIDGETY IN BED. NO PURPOSEFUL MOVEMENTS NOTED. VENT TOLERANCE BECOMES MORE OF AN ISSUE. WITH INCREASE, PT HAS BETTER TOLERANCE. HAS HAD 2 BM'S TONIGHT. FULL BEDBATH WITH FULL LINEN CHANGE DONE. PT TOLERATES THIS WELL. TOLERATING TUBE FEEDINGS AT GOAL. PT HAS ONLY 200 ML RESIDUAL FROM OGT. PT HAS LOW GRADE FEVER STAYING JUST BELOW 100.0 DEGRESS. WILL CONTINUE TO MONITOR PT, AND WILL REPORT OFF TO ONCOMING RN.
--- NOTE | 2023-12-28 07:56 | NUR ---
ASSUMED CARE BEDSIDE REPORT FROM YOJANA GENAO AT 0700. PT INTUBATED, SEDATION ON STANDBY. VENT SETTINGS SPONT 5/5/35%, TV MID 600'SML, RR 16-24. LUNGS CLEAR. SMALL AMOUNT THIN PINK SECRETIONS FROM ETT. +COUGH/GAG/SWALLOW, BUT WEAK. EMBER. OPENS EYES SPONT, MOVES BLE, LUE SPONT, NO MOVEMENT NOTED TO RIGHT ARM. SR, RATE 90'S. BP STABLE. ABD FLAT, SOFT, NON TENDER, BT X 4. TUBE FEEDS AT GOAL. LOOSE BROWN BM, INCONTINENT. MENDOZA PATENT, DRAINING CLEAR YELLOW URINE TO GRAVITY. WILL CONTINUE PLAN OF CARE.
[2023-12-28] MEDS ORDERED: Potassium Phosphate Dibasic 30 MM in Dextrose 5% 500 ML IV STA (11:19)
--- NOTE | 2023-12-28 17:23 | NUR ---
SHIFT SUMMARY PT REMAINS INTUBATED, VENT SETTINGS UNCHANGED, SPONT 5/5/35%, TV MID 600'S, RR 16-24. LUNGS CLEAR ON LEFT, COARSE ON RIGHT SIDE, INCREASED IN PINK SECRETIONS FROM ETT. REMAINED OFF SEDATION OTHER THAN TO GO TO CT. PT MOVING ALL EXT, OPEN EYES SPONT, DOES NOT TRACK, DOES NOT FOLLOW DIRECTIONS. WEAK COUGH/GAG/SWALLOW. EMBER. FENTANYL PRN. SR, RATE 90-100'S. BP STABLE. TUBE FEEDS AT GOAL, MULTIPLE LIQUID BROWN BMS THIS SHIFT, RECTAL TUBE PLACED. MENDOZA PATENT, DRAINED CLEAR YELLOW URINE TO GRAVITY. CVC TO RIJ, POWERGLIDE TO LUE. KPHOS REPLACED THIS SHIFT. REPEAT HEAD CT DONE. NO SIGNIFICANT CHANGES. PLAN TO REMAIN ON SPONT AND OFF SEDATION TOLERATED PER DR THORNTON. WILL CONTINUE PLAN OF CARE UNTIL REPORT TO ONCOMING NURSE.
--- NOTE | 2023-12-28 20:47 | NUR ---
ASSUMPTION OF CARE ASSUMED CARE OF PATIENT AT 1900, BEDSIDE SHIFT REPORT RECEIVED FROM DAYSARFT RN. PT RESTING IN BED, INTUBATED BUT NOT SEDATED. PT MOVES EXTREMITIES SPONTANEOUSLY, CONTINUOUSLY KICKS LEGS, MOVES UPPER EXTREMITIES SPONTANEOUSLY, TURNS HEAD SIDE TO SIDE. PT AGGITATED WITH SUCTIONING. PT INCONSISTENTLY FOLLOWS DIRECTION WHEN PROMPTED. DURING ASSESSMENT PT TURNED HEAD IN DIRECTION OF RN WHEN PROMPTED, NO EYE CONTACT. PT SQUEEZED HANDS AND WIGGLED HIS TOES. HR 90-100'S SINUS, SBP 150-180'S. VENT SETTINGS SPONTANEOUS 5/5 35%, OXYGEN SATURATION >95%. PT MEDICATED WITH FENTANYL PER EMAR FOR RESTLESSNESS/ VENT COMPLIANCE, VENT ALARMING FREQUENTLY FOR HIGH EXHALED MINUTE VENTILATION, RR 20-30'S. ABDOMEN SOFT, BOWEL TONES ACTIVE. OG TUBE IN PLACE INFUSING VHP AT GOAL RATE OF 45MLS/HR WITH 30ML Q4H FLUSH. RECTAL TUBE IN PLACE WITH LIQUID BROWN OUTPUT. TEMP MENDOZA IN PLACE PATENT DRAINING YELLOW URINE TO GRAVITY. CENTRAL LINE IN PLACE TO RIJ, POWERGLIDE IN PLACE TO CHARBEL. BED IN LOWEST POSITION, CARE CONTINUES.
--- NOTE | 2023-12-28 22:34 | NUR ---
PT UPDATE CALLED AND SPOKE WITH REGUARDING PT NEURO STATUS, MENTATION, RESTLESSNESS/AGGITATION AND NON COMPLINACE WITH THE VENT. OKAY PER DR. THORNTON TO INCREASE PROPOFOL OVERNIGHT. CARE CONTINUES.
[2023-12-29] VITALS (49 sets, daily range): BP systolic 96–199; BP diastolic 46–92
[2023-12-29 03:54] LABS: BASOPHILS ABSOLUTE AUTO 0.03 K/mm3 (0.00-0.23); BASOPHILS PERCENT AUTO 0 % (0-2); EOSINOPHILS PERCENT AUTO 1 % (0-6); Hematocrit 25.9 % (37.0-53.0); Hemoglobin 8.4 g/dL (13.5-17.5); IMMATURE GRAN ABSOLUTE AUTO 0.15 K/mm3 (0.00-0.10); IMMATURE GRAN PERCENT AUTO 1 % (0-1); LYMPHOCYTES ABSOLUTE AUTO 0.58 K/mm3 (0.84-5.20); LYMPHOCYTES PERCENT AUTO 4 % (21-46); MONOCYTES ABSOLUTE AUTO 1.49 K/mm3 (0.16-1.47); MONOCYTES PERCENT AUTO 10 % (4-13); Mean Corpuscular HGB 28.9 pg (26.0-34.0); Mean Corpuscular HGB Conc 32.4 g/dL (31.5-36.5); Mean Corpuscular Volume 89 fL (80-100); Mean Platelet Volume 9.3 fL (9.1-12.4); NEUTROPHILS ABSOLUTE AUTO 12.63 K/mm3 (1.96-9.15); NEUTROPHILS PERCENT AUTO 84 % (41-73); Platelet Count 591 K/mm3 (150-400); RDW Coefficient Variation 17.4 % (11.7-14.2); Red Blood Cell Count 2.91 M/mm3 (4.30-5.90); White Blood Cell Count 14.98 K/mm3 (4.00-11.30)
[2023-12-29 04:10] LABS: Bun/Creatinine Ratio 51.5 (12.0-20.0); Calcium, Blood 7.8 mg/dL (8.5-10.1); Creatinine, Blood 0.7 mg/dL (0.60-1.20); Magnesium, Blood 2.2 mg/dL (1.6-2.4); Phosphorus, Blood 2.8 mg/dL (2.5-4.9); Potassium, Blood 3.7 mmol/L (3.5-5.5)
[2023-12-29] MEDS ORDERED: Potassium Chloride 40 MEQ IV ONE (05:15)
[2023-12-29] MEDS ORDERED: Potassium Chl 20MEQ/Water100ML 100 ML IV SCH (06:00)
--- NOTE | 2023-12-29 06:18 | NUR ---
SHIFT SUMMARY PT CONTINUES TO REST IN BED, INTUBATED, SEDATION PLACED ON SB AT 0530. PT MOVES EXTREMITIES SPONTANEOUSLY, MOVES HEAD SIDE TO SIDE. HR 70-100'S SINUS, MAP >65. VENT SETTINGS SPONTANEOUS 5/5 35%, OXYGEN SATURATION >92%. ABDOMEN SOFT, BOWEL TONES ACTIVE IN ALL FOUR QUADRANTS. OG TUBE IN PLACE INFUSING VHP AT GOAL RATE OF 45MLS/HR WITH 30ML Q4H WATER FLUSH. RECTAL TUBE IN PLACE DRAINING LIQUID BROWN STOOL TO GRAVITY. TEMP MENDOZA IN PLACE PATENT DRAINING YELLOW URINE TO GRAVITY. CENTRAL LINE IN PLACE TO RIJ, POWERGLIDE IN PLACE TO CHARBEL SL. BED IN LOWEST POSITION, CALL LIGHT WITHIN REACH, CARE CONTINUES.
[2023-12-29] MEDS ORDERED: Losartan Potassium 25 MG Tab PT SCH (09:25)
--- NOTE | 2023-12-29 10:00 | NUR ---
ASSUMED CARE BEDSIDE REPORT FROM JUANA GENAO AT 0700. PT INTUBATED, VENT SETTINGS SPONT 5/5/35%, INCREASED TO 7/5/40%. PT TV INCREASED TO MID 400'S AFTER INCREASE IN PS. LUNGS CLEAR. SMALL AMOUNT OF THIN PINK/RED SECRETIONS FROM ETT. SEDATION ON STANDBY. PT RASS -4 TO +2. PT ALSO INTERMITTANTLY TACHYPNEIC, UNABLE TO CORRELATE c CARE OR OTHER STIMULI. PT DOES NOT FOLLOW COMMANDS. WITHDRAWS BLE TO PAIN, NO WITHDRAWAL BUE. GRIMACES TO PAINFUL STIMULI. WEAK COUGH/GAG/SWALLOW PRESENT. EMBER. FENTANYL GIVEN ONCE FOR CPOT 4. ST 90-110'S. BP STABLE. TUBE FEEDS AT GOAL, INCREASED FLUSH TO 100 ML q4. RECTAL TUBE IN PLACE, LIQUID BROWN STOOL OUT. MENDOZA PATENT, DRAINING CLEAR YELLOW URINE TO GRAVITY. CVC TO RIJ, PLAN TO REMOVED THIS SHIFT. BUE EDEMATOUS, ECCHYMOSIS TO RIGHT ARM FROM WRIST TO AXILLA. WILL CONTINUE PLAN OF CARE.
[2023-12-29] MEDS ORDERED: Furosemide 10 MG/ML 4ML Vial IV ONE (11:00)
[2023-12-29] MEDS ORDERED: Acetaminophen 160MG / 5ML 10.15 UDC PT PRN (13:00)
--- NOTE | 2023-12-29 15:52 | NUR ---
Pt is lying in bed, remains on ventilator support. He initially cam into ED with chest pain radiating to his back and arms. Dissection was ruled out, and pt went into V-fib. ROSC was acheived within 4 minutes after ACLS. He also received 2 shocks and given amiodarone. The patient was taken to the bundle tier and labeler for stents, and he remains on a vent to this day. Discussion with his and daughter this afternoon regarding next steps. The family are prepared to liberate the patient from the vent tomorrow at approximately 1100 in the morning.
--- NOTE | 2023-12-29 17:38 | NUR ---
SHIFT SUMMARY PT REMAINS INTUBATED, VENT SETTINGS SPONT 7/5/45%. TV 450-550ML, RR VARIABLE 18-40'S, DR THORNTON AWARE. LUNGS CLEAR, OCCASIONALLY COARSE ON RIGHT SIDE. SMALL AMOUNT OF PINK SECRETIONS FROM ETT. PT OFF SEDATION ENTIRE SHIFT. MOVES BLE AND LUE SPONT, WITHDRAWS BLE TO PAIN. DOES NOT FOLLOW COMMANDS. WEAK COUGH/GAG/SWALLOW. GRIMACES c CARE. EMBER. FENTANYL GIVEN TWICE FOR PAIN AND RR, MINIMALLY EFFECTIVE. ST 90-110'S. BP STABLE. TUBE FEEDS AT GOAL, RECTAL TUBE IN PLACE, LIQUID BROWN STOOL OUT. MENDOZA PATENT, DIURESED THIS SHIFT, 2100 ML CLEAR YELLOW URINE OUT. CVC REMOVED, PETROLEUM GAUZE IN PLACE. PICC PLACED TO E. BUE CONTINUES TO BE EDEMATOUS. FAMILY MET c PALLIATIVE CARE THIS SHIFT. WILL CONTINUE PLAN OF CARE UNTIL REPORT TO ONCOMING NURSE.
[2023-12-29] MEDS ORDERED: Enoxaparin 60 MG/0.6 ML SYR SC SCH (21:00)
--- NOTE | 2023-12-29 21:16 | NUR ---
ASSUMPTION OF CARE ASSUMED CARE OF PATIENT AT 1900, BEDSIDE SHIFT REPORT RECEIVED FROM CHLOE RN PT RESTING IN BED, INTUBATED BUT NOT SEDATED. PT MOVES LOWER EXTREMITIES SPONTANEOUSLY, MOVES HEAD SIDE TO SIDE. PT NOT FOLLOWING COMMANDS, OR MAKING EYE CONTACT. PT RESTLESS IN BED. HR 100-110'S SINUS, MAP >65. VENT SETTINGS SPONTANEOUS 10/5 45%, OXYGEN SATURATION >95%. RESPIRATORY RATE IN THE 30-40'S. ABDOMEN SOFT, BOWEL TONES ACTIVE. OG TUBE IN PLACE WITH VHP INFUSING AT GOAL RATE OF 45MLS/HR WITH 100ML Q4H WATER FLUSH. RECTAL TUBE IN PLACE WITH LIQUID BROWN OUTPUT. TEMP MENDOZA IN PLACE PATENT DRAINING YELLOW URINE TO GRAVITY. PICC LINE IN PLACE TO CHARBEL INFUSING NS TKO. BED IN LOWEST POSITION, CARE CONTIUES.
[2023-12-30] VITALS (21 sets, daily range): BP systolic 96–141; BP diastolic 44–73
[2023-12-30 04:15] LABS: Hematocrit 27.2 % (37.0-53.0); Hemoglobin 8.9 g/dL (13.5-17.5); Mean Corpuscular HGB Conc 32.7 g/dL (31.5-36.5); Mean Corpuscular Volume 89 fL (80-100); Mean Platelet Volume 9.8 fL (9.1-12.4); NRBC ABSOLUTE 0.02 K/mm3 (0.00-0.02); NRBC Auto 0.1 /100 WBC (0.0-0.2); Platelet Count 658 K/mm3 (150-400); RDW Coefficient Variation 17.3 % (11.7-14.2); RDW Standard Deviation 54.6 fL (35.1-46.3); Red Blood Cell Count 3.07 M/mm3 (4.30-5.90); White Blood Cell Count 23.02 K/mm3 (4.00-11.30)
[2023-12-30 04:34] LABS: Bun/Creatinine Ratio 57.6 (12.0-20.0); Calcium, Blood 7.8 mg/dL (8.5-10.1); Creatinine, Blood 0.78 mg/dL (0.60-1.20); Magnesium, Blood 2.1 mg/dL (1.6-2.4); Phosphorus, Blood 2.9 mg/dL (2.5-4.9); Potassium, Blood 3.3 mmol/L (3.5-5.5)
[2023-12-30] MEDS ORDERED: Potassium Chloride 40 MEQ IV ONE (04:45)
[2023-12-30 04:49] LABS: BAND PERCENT MAN 16 % (0-8); BASOPHILS PERCENT MAN 0 % (0-2); EOSINOPHILS PERCENT MAN 0 % (0-6); LYMPHOCYTES ABSOLUTE MAN 1.15 K/mm3 (0.84-5.20); LYMPHOCYTES PERCENT MAN 5 % (21-46); MONOCYTES ABSOLUTE MAN 1.38 K/mm3 (0.16-1.47); MONOCYTES PERCENT MAN 6 % (4-13); NEUTROPHILS ABSOLUTE MAN 20.48 K/mm3 (1.96-9.15); SEG NEUTROPHILS PERCENT MAN 73 % (41-73); TOTAL CELLS COUNTED 100
--- NOTE | 2023-12-30 05:37 | NUR ---
SHIFT SUMMARY NO ACUTE CHNAGES THIS SHIFT. PT CONTINUES TO REST IN BED, INTUBATED BUT NOT SEDATED. PT RESTLESS IN BED, MOVES LEGS CONTINUOUSLY, TURNS HEAD SIDE TO SIDE. PT DOES NOT FOLLOW COMMANDS OR MAKE EYE CONTACT. HR 100-110'S SINUS, MAP >65. VENT SETTINGS SPONTANEOUS 10/5 45%, OXYGEN SATURATION >95%. ABDOMEN SOFT, BOWEL TONES ACTIVE THROUGHOUT. OG TUBE IN PLACE WITH VHP INFUSING AT GOAL RATE OF 45MLS/HR WITH 100ML Q4H WATER FLUSH. RECTAL TUBE IN PLACE WITH LIQUID BROWN OUTPUT. TEMP MENDOZA IN PLACE PATENT DRAINING YELLOW URINE TO GRAVITY. PICC LINE IN PLACE TO CHARBEL. BED IN LOWEST POSITION, CARE CONTINUES.
[2023-12-30] MEDS ORDERED: Potassium Chl 20MEQ/Water100ML 100 ML IV SCH (05:50)
[2023-12-30 12:56] LABS: Bun/Creatinine Ratio 59.4 (12.0-20.0); Calcium, Blood 7.8 mg/dL (8.5-10.1); Creatinine, Blood 0.77 mg/dL (0.60-1.20); Potassium, Blood 3.6 mmol/L (3.5-5.5)
[2023-12-30] MEDS ORDERED: Atropine Sulfate 1% Opth Soln 2ML BTL SL PRN (13:35)
[2023-12-30] MEDS ORDERED: Morphine Sulfate 10 MG/ML 1MLSYR IV PRN (13:35)
[2023-12-30] MEDS ORDERED: Scopolamine Hydrobromide Patch TOP PRN (13:35)
--- NOTE | 2023-12-30 14:12 | NUR ---
STATUS UPDATE Dr. Noble at bedside with patients and son to discuss plan of care. Family made the decision to transition to comfort care. Orders placed and RT came to bedside. Patient extubated at 1400. Spiritual care aware and at bedside with family.
--- NOTE | 2023-12-30 14:17 | NUR ---
"Spiritual Care | Comfort Care - extubation Pt. is on comfort care and was extubated. This camouflage assembler went to [facility] and brought family in to be with Pt. After the staff had made the Pt. comfortable, scripture is read and a blessing is giveen for the Pt. Pts. son verbalized a request for the family to be alone. Will remain available to the Pt., staff, and family."
[2023-12-30] MEDS ORDERED: LORazepam 2 MG/ML 1ML Injection IV PRN (15:25)
--- NOTE | 2023-12-30 18:05 | NUR ---
Patient transitioned to comfort measures at 1400. Medicated per MAR for comfort. and son at bedside.
--- NOTE | 2023-12-30 19:16 | NUR ---
ASSUMED CARE OF PT AT 1900. REPORT RECEIVED AT BEDSIDE. PT PRESENTS IN BED. FAMILY HAS GONE HOME FOR THE NIGHT. PT NOTED TO BE HAVING CHEYNNE-PATEL STYLE RESPIRATIONS. PER OFFGOING RN, THIS HAS NOT CHANGED FOR A PERIOD SINCE BEING EXTUBATED EARLIER IN THE DAY. WILL REVIEW CHART AND PLAN OF CARE FOR THIS PT.
--- NOTE | 2023-12-30 22:48 | NUR ---
HAVE MEDICATED PT WITH 5 MG MORPHINE FOR INCREASE IN RESPIRATORY RATE. ATROPINE 3 DROPS FOR INCREASE IN AIRWAY CONGESTION.
--- NOTE | 2023-12-31 03:03 | NUR ---
PT MEDICATED WITH 5 MG MORPHINE AND 2 MG LORAZEPAM FOR INCREASED WORK OF BREATHING. PT DIAPHORETIC. TEMP 101.8. PT SEMI-COMATOSE AT THIS TIME. WILL CONTINUE TO MONITOR AND CONTINUE WITH COMFORT MEASURES.
--- NOTE | 2023-12-31 06:20 | NUR ---
PT CONTINUES WITH COMFORT CARE. REMAINS SEMI-COMATOSE. PT DOES HAVE OCCASSIONAL MOIST COUGH. WITH SUBGLOTTAL SUCTIONING, PT WILL BITE DOWN ON CATHETER. NO OTHER PURPOSEFUL MOVEMENTS NOTED. WILL CONTINUE TO MONITOR PT, AND WILL REPORT OFF TO ONCOMING RN.
--- NOTE | 2023-12-31 06:51 | NUR ---
PT NOTED TO HAVE BRADYCARDIA WHICH PROGRESSED TO ASYSTOLE. PT NOTED WITHOUT HEART BEAT OR RESPIRATIONS OBSERVED BY AG AND CHADWICK HERMAN AT 0643 THIS MORNING. CALL MADE TO PT'S FAMILY AND SPOKE WITH PT'S SON CRESCENCIO TO INFORM HIM OF HIS FATHER'S PASSING. CALL MADE TO DR SIMMONS TO INFORM HIM WELL.
--- NOTE | 2023-12-31 10:30 | NUR ---
"Spiritual Care | nurse support Two attempts to contact family members have been made by this electrical instrumentation technician. Still no decision with regard to family home choice, and plans for Pts. belongings. Will remain available to the staff as we seek family feedback."
== END 2023-12-31 14:50 | DRG 321 ==
LOC: ER 11:20 → ICUE 14:50
PROVIDERS: Family Medicine; Internal Medicine Critical Care Medicine; Nurse Practitioner Acute Care; Physician Assistant; Registered Nurse; Student in an Organized Health Care Education/Training Program; ADMIT Student in an Organized Health Care Education/Training Program
PROC: 027034Z Dilation of Coronary Artery, One Artery with Drug-eluting Intraluminal Device, Percutaneous Approach (ICD-10-PCS; principal; 2023-12-23)
PROC: 4A023N7 Measurement of Cardiac Sampling and Pressure, Left Heart, Percutaneous Approach (ICD-10-PCS; 2023-12-23)
PROC: B2111ZZ Fluoroscopy of Multiple Coronary Arteries using Low Osmolar Contrast (ICD-10-PCS; 2023-12-23)
PROC: B240ZZ3 Ultrasonography of Single Coronary Artery, Intravascular (ICD-10-PCS; 2023-12-23)
PROC: 0BH17EZ Insertion of Endotracheal Airway into Trachea, Via Natural or Artificial Opening (ICD-10-PCS; 2023-12-23)
PROC: 5A1955Z Respiratory Ventilation, Greater than 96 Consecutive Hours (ICD-10-PCS; 2023-12-23)
PROC: 3E033XZ Introduction of Vasopressor into Peripheral Vein, Percutaneous Approach (ICD-10-PCS; 2023-12-23)
PROC: 5A12012 Performance of Cardiac Output, Single, Manual (ICD-10-PCS; 2023-12-23)
PROC: 3E03329 Introduction of Other Anti-infective into Peripheral Vein, Percutaneous Approach (ICD-10-PCS; 2023-12-23)
PROC: 5A2204Z Restoration of Cardiac Rhythm, Single (ICD-10-PCS; 2023-12-23)
PROC: 02HV33Z Insertion of Infusion Device into Superior Vena Cava, Percutaneous Approach (ICD-10-PCS; 2023-12-23)
PROC: B548ZZA Ultrasonography of Superior Vena Cava, Guidance (ICD-10-PCS; 2023-12-23)
PROC: 0DH67UZ Insertion of Feeding Device into Stomach, Via Natural or Artificial Opening (ICD-10-PCS; 2023-12-23)
PROC: 0T9B70Z Drainage of Bladder with Drainage Device, Via Natural or Artificial Opening (ICD-10-PCS; 2023-12-23)
PROC: 4A033R1 Measurement of Arterial Saturation, Peripheral, Percutaneous Approach (ICD-10-PCS; 2023-12-23)
DX: I21.02 ST elevation (STEMI) myocardial infarction involving left anterior descending coronary artery (principal); G92.8 Other toxic encephalopathy; I50.21 Acute systolic (congestive) heart failure; J15.1 Pneumonia due to Pseudomonas; J69.0 Pneumonitis due to inhalation of food and vomit; Z66 Do not resuscitate; Z51.5 Encounter for palliative care; J96.01 Acute respiratory failure with hypoxia; I63.89 Other cerebral infarction; J15.5 Pneumonia due to Escherichia coli; J15.211 Pneumonia due to Methicillin susceptible Staphylococcus aureus; J44.0 Chronic obstructive pulmonary disease with (acute) lower respiratory infection; I47.20 Ventricular tachycardia, unspecified; T82.838A Hemorrhage due to vascular prosthetic devices, implants and grafts, initial encounter; F03.911 Unspecified dementia, unspecified severity, with agitation; J43.9 Emphysema, unspecified; I49.01 Ventricular fibrillation; I46.2 Cardiac arrest due to underlying cardiac condition; I25.10 Atherosclerotic heart disease of native coronary artery without angina pectoris; E78.5 Hyperlipidemia, unspecified; E03.9 Hypothyroidism, unspecified; R73.9 Hyperglycemia, unspecified; I44.7 Left bundle-branch block, unspecified; I25.5 Ischemic cardiomyopathy; K02.9 Dental caries, unspecified; I48.0 Paroxysmal atrial fibrillation; R91.1 Solitary pulmonary nodule; E83.39 Other disorders of phosphorus metabolism; F17.200 Nicotine dependence, unspecified, uncomplicated; D64.9 Anemia, unspecified; I95.89 Other hypotension; J98.09 Other diseases of bronchus, not elsewhere classified; I10 Essential (primary) hypertension; K05.20 Aggressive periodontitis, unspecified; D72.828 Other elevated white blood cell count; I49.3 Ventricular premature depolarization; I49.1 Atrial premature depolarization; Z95.5 Presence of coronary angioplasty implant and graft; Z79.82 Long term (current) use of aspirin; Z79.890 Hormone replacement therapy; Z79.02 Long term (current) use of antithrombotics/antiplatelets; Z79.899 Other long term (current) drug therapy; Y83.1 Surgical operation with implant of artificial internal device as the cause of abnormal reaction of the patient, or of later complication, without mention of misadventure at the time of the procedure
CPT/HCPCS: 31500; 36415; 36556; 36569; 36600; 51702; 70450; 71045; 71046; 71275; 74174; 76937; 80048; 80053; 81001; 82330; 82803; 82947; 83036; 83605; 83690; 83735; 84100; 84484; 85025; 85347; 85610; 86850; 86900; 86901; 87040; 87070; 87077; 87086; 87186; 87205; 87633; 92950; 92978; 93005; 93010; 93306; 93458; 94002; 94003; 94640; 94664; 94760; 94762; 96374-59; 96375-59; 99152; 99285-25; A9270; C1725; C1751; C1753; C1769; C1874; C1887; C1894; C9600; C9606; J0282; J0295; J0461; J1170; J1644; J1650; J1940; J2060; J2250; J2270; J2371; J2405; J2470; J2543; J2704; J2919; J3010; J3246; J3475; J3480; J7030; J7050; J7060; J7120; Q9967